=== PATIENT | female | born 1965 | race Hispanic/Latino ===

== ENCOUNTER → 2018-01-21 | Outpatient (CLI) | payer OTHER ==
--- NOTE | 2018-01-21 17:26 | Diagnostic Imaging Report ---
PROCEDURE: US THYROID COMPARISON: None. INDICATIONS:ENLARGED THYROID TECHNIQUE: Transverse and longitudinal miles-scale sonographic images of the thyroid were obtained and supplemented with color Doppler. FINDINGS: Right thyroid lobe: Measures 4.7 x 1.4 x 1.6 cm. Hypoechoic nodule in the inferior right thyroid lobe measures 7 x 4 x 5 mm. Second hypoechoic nodule midportion of the right thyroid lobe measures 3 x 2 x 3 mm. None of these nodules meet criteria for biopsy. Left thyroid lobe: Measures 2.9 x 0.9 x 1.3 cm. No cystic or solid masses. Isthmus: Measures 0.3 cm. CONCLUSION: Small hypoechoic right lobe nodules as described above. Eyal Smith D.O. Dictated by: Eyal Smith D.O. on 01/21/2018 at 17:25 Electronically approved by: Eyal Smith D.O. on 01/21/2018 at 17:25
== END ==
LOC: US 15:24
PROVIDERS: ATTEND Family Medicine
DX: E04.9 Nontoxic goiter, unspecified (principal)
CPT/HCPCS: 76536

== ENCOUNTER → 2019-01-25 | Outpatient (CLI) | payer OTHER ==
--- NOTE | 2019-01-25 12:32 | Diagnostic Imaging Report ---
EXAMINATION: Thyroid ultrasound. CLINICAL HISTORY: Thyroid nodule COMPARISON: None. . DISCUSSION: Transverse and longitudinal images of the thyroid were obtained utilizing grayscale and color Doppler modalities. The right thyroid lobe measures 4.4 x 1.5 x 1.9 cm and shows normal echogenicity. Single nodule in the interpolar region, solid (2.), Hypoechoic (2.), Wider than tall (0), smoothly marginated (0), no echogenic foci (0), TR 4. This nodule measures 0.4 x 0.3 x 0.3 cm The left thyroid lobe measures 3.5 x 1.2 x 1.3 cm and shows normal echogenicity. No nodules are seen. The thyroid isthmus measures 0.2 cm and shows normal echogenicity. No nodules are seen. There is no adenopathy. IMPRESSION: 4 mm nodule in the right lobe of the thyroid. No imaging follow-up is indicated per ACR TI-RADS criteria. Signed by: Dr. Rosales Berry M.D. on 01/25/2019 12:28 PM
== END ==
LOC: US 11:18
PROVIDERS: ATTEND Family Medicine
DX: E04.1 Nontoxic single thyroid nodule (principal)
CPT/HCPCS: 76536